=== PATIENT | male | born 1995 | race Caucasian/White ===

== ENCOUNTER 2017-12-14 22:33 | Emergency (ER) ==
[2017-12-14 22:40] VITALS: BMI 33.7
--- NOTE | 2017-12-14 22:47 | ED.PDOC ---
General ED Provider: Dr. ROBERT HART Chief Complaint: Chest Pain Stated Complaint: Patient is a 22 year old male who comes to the ER with complaints of Mid chest pain started about a day ago. Also has Left arm pain that started 2 hours ago, sore throat, cough, headache. Time Seen by Physician: 22:46 Mode of Arrival: Walk-In Information Source: Patient Exam Limitations: No limitations Nursing and Triage Documentation Reviewed and Agree: Yes Reviewed sepsis parameters & appropriate labs ordered?: Yes System Inflammatory Response Syndrome: Temp 101F or Greater, Pulse >90 BPM Sepsis Protocol: For patient's 13 years and over: Temp is 96.8 and below OR 101 and greater Pulse >90 BPM Resp >20/minute Acutely Altered Mental Status Are patient's symptoms suggestive of a new infection, such as: -Pneumonia -Skin, Soft Tissue -Endocarditis -UTI -Bone, Joint Infection -Implantable Device -Acute Abdominal Infection -Wound Infection -Meningitis -Blood Stream Catheter Infection -Unknown Cardiovascular Complaint Exam - Chest Pain Complaint/Exam Onset: Gradual Duration: 2 days Symptoms Are: Still present Timing: Constant Length of Chest Pain Episodes: constant Initial Severity: Moderate (7/10) Current Severity: Moderate Location: Reports: Midsternal Pain Radiates: Reports: Left arm Character: Reports: Aching, Sharp Aggravating: Reports: Movement, Deep breaths Associated Signs and Symptoms: Reports: Cough. Denies: Diaphoresis, Nausea, Vomiting Related History: Denies: Similar episode AMI/ACS Risk Factors: Reports: None TAD Risk Factors: Reports: None Pulmonary Embolism Risk Factors: Reports: None Prior Care for this Complaint: No Recent Stress Test: No Recent Echo/LV Function: No JVD Present: No Subcutaneous Emphysema Present: No Diminshed Breath Sounds: No Reproducible Chest Wall Pain: Yes (mid chest ) Bilateral Pulses Present: No Unequal Pulses Noted: No If Risk Factors for AMI/ACS Consider: EKG, Cardiac Enzymes Differential Diagnoses: Chest Wall Pain Quality Indicators For Acute OH or Cardiac Chest Pain: EKG in 10min. Review of Systems - Review Of Systems Constitutional: Reports: Fever Ears, Nose, Mouth, Throat: Reports: Throat pain Cardiac: Reports: Chest pain Musculoskeletal: Reports: Joint pain, Muscle pain Neurological: Reports: Anxiety All Other Systems: Reviewed and Negative Past Medical History - Past Medical History Previously Healthy: Yes Endocrine: Reports: None Cardiovascular: Reports: None Respiratory: Reports: None Hematological: Reports: None Gastrointestinal: Reports: None Genitourinary: Reports: None Neuro/Psych: Reports: None Musculoskeletal: Reports: None Cancer: Reports: None - Surgical History General Surgical History: Reports: Other (pylonoidal cyst removal) - Family History Family History: Reports: Unknown - Social History Smoking Status: Current every day smoker, Heavy tobacco smoker Hx Substance Use: No Alcohol Screening: None - Immunizations Tetanus Shot up to Date: Yes Physical Exam - Physical Exam Appearance: Ill-appearing Ill-appearing: Mild Pain Distress: Moderate Neck: Supple Respiratory: Airway patent, Breath sounds clear, Breath sounds equal, Respirations nonlabored Cardiovascular: Pulses normal, No rub, No murmur, Tachycardia GI/: Soft, Nontender, No masses, Bowel sounds normal, No Organomegaly Musculoskeletal: Normal strength, ROM intact, No edema, No calf tenderness Skin: Warm, Dry, Normal color Neurological: Sensation intact, Motor intact, Reflexes intact, Cranial nerves intact, Alert, Oriented Psychiatric: Anxious Critical Care Note - Critical Care Note Total Time (mins): 0 Course - Course Hematology/Chemistry: 12/14/17 22:55 12/14/17 22:55 Orders, Labs, Meds: Lab Review 12/14/17 12/14/17 12/14/17 22:55 22:55 22:55 WBC 15.57 H RBC 5.10 Hgb 16.0 Hct 44.8 MCV 87.8 MCH 31.4 H MCHC 35.7 H RDW Coeff of Jayden 12.7 Plt Count 331 Immature Gran % (Auto) 0.3 Neut % (Auto) 72.8 Lymph % (Auto) 16.2 [place] % (Auto) 9.6 Eos % (Auto) 0.5 Baso % (Auto) 0.6 Immature Gran # (Auto) 0.0 Neut # 11.3 H Lymph # 2.5 [place] # 1.5 Eos # 0.1 Baso # 0.1 Sodium 139 Potassium 3.3 L Chloride 104 Carbon Dioxide 26 Anion Gap 12.3 BUN 8 Creatinine 1.05 Estimated GFR (MDRD) 90.00 BUN/Creatinine Ratio 7.61 Glucose 105 H Lactic Acid Calcium 9.7 Total Bilirubin 0.8 AST 15 ALT 17 Alkaline Phosphatase 93 Total Creatine Kinase 113 Troponin I 0.0500 Total Protein 8.0 Albumin 3.9 Globulin 4.1 Albumin/Globulin Ratio 0.95 Procalcitonin TSH 0.895 Urine Opiates Screen Negative Ur Oxycodone Screen Negative Urine Methadone Screen Negative Ur Propoxyphene Screen Negative Ur Barbiturates Screen Negative U Tricyclic Antidepress Negative Ur Phencyclidine Scrn Negative Ur Amphetamine Screen Negative U Methamphetamines Scrn Negative U Benzodiazepines Scrn Negative Urine Cocaine Screen Negative U Cannabinoids Screen Negative Influenza A (Rapid) Influenza B (Rapid) 12/14/17 12/14/17 12/14/17 22:55 22:55 22:55 WBC RBC Hgb Hct MCV MCH MCHC RDW Coeff of [place] Plt Count Immature Gran % (Auto) Neut % (Auto) Lymph % (Auto) [place] % (Auto) Eos % (Auto) Baso % (Auto) Immature Gran # (Auto) Neut # Lymph # [place] # Eos # Baso # Sodium Potassium Chloride Carbon Dioxide Anion Gap BUN Creatinine Estimated GFR (MDRD) BUN/Creatinine Ratio Glucose Lactic Acid 6.7 Calcium Total Bilirubin AST ALT Alkaline Phosphatase Total Creatine Kinase Troponin I Total Protein Albumin Globulin Albumin/Globulin Ratio Procalcitonin < 0.05 TSH Urine Opiates Screen Ur Oxycodone Screen Urine Methadone Screen Ur Propoxyphene Screen Ur Barbiturates Screen U Tricyclic Antidepress Ur Phencyclidine Scrn Ur Amphetamine Screen U Methamphetamines Scrn U Benzodiazepines Scrn Urine Cocaine Screen U Cannabinoids Screen Influenza A (Rapid) Negative by naat Influenza B (Rapid) Negative by naat Orders Category Date Time Status EKG-(ED ONLY) Stat CARDIO 12/14/17 22:44 Completed BLOOD CULTURE (ED ONLY) Stat LAB 12/14/17 22:55 Received CBC W/ AUTO DIFF Stat LAB 12/14/17 22:55 Completed COMPREHENSIVE METABOLIC PANEL Stat LAB 12/14/17 22:55 Completed CREATINE KINASE Stat LAB 12/14/17 22:55 Completed DRUG SCREEN, URINE, RAPID Stat LAB 12/14/17 22:55 Completed FLU A/B MOLECULAR Stat LAB 12/14/17 22:55 Completed LACTIC ACID Stat LAB 12/14/17 22:55 Completed PROCALCITONIN Stat LAB 12/14/17 22:55 Completed RAPID STREP SCREEN [MOLECULAR GROUP A STREP] Stat LAB 12/14/17 22:55 Completed THYROID STIMULATING HORMONE Stat LAB 12/14/17 22:55 Completed TROPONIN I Stat LAB 12/14/17 22:55 Completed Acetaminophen [Tylenol] MEDS 12/15/17 00:12 Discontinued 1,000 mg PO ONCE STA Ketorolac Tromethamine [Toradol] MEDS 12/14/17 23:12 Discontinued 60 mg IM ONCE STA CHEST, 2 VIEWS PA & LAT Stat RADS 12/14/17 22:45 Taken Medications Discontinued Medications Generic Name Dose Route Start Last Admin Trade Name Freq PRN Reason Stop Dose Admin Acetaminophen 1,000 mg 12/15/17 00:12 12/15/17 00:25 Tylenol PO 12/15/17 00:13 1,000 mg ONCE STA Administration Ketorolac Tromethamine 60 mg 12/14/17 23:12 12/14/17 23:35 Toradol IM 12/14/17 23:13 Not Given ONCE STA Vital Signs: Temp Pulse Resp BP Pulse Ox 12/15/17 00:08 101.2 F H 110 H 24 156/93 H 97 12/14/17 22:34 100.9 F H 116 H 24 160/90 H 97 ZOE Risk Score Age >/= 65: No >/= 3 CAD Risk Factors: No Known CAD (Stenosis >/= 50%): No ASA Use in Past 7 Days: No Severe Angina (>/= 2 episodes in 24 hours): No EKG ST Changes >/= 0.5mm: No Postive Cardiac Marker: No ZOE Total Score: 0 ZOE Risk Score: Risk Score Odds of by 30D 0 0.1 (0.1-0.2) 1 0.3 (0.2-0.3) 2 0.4 (0.3-0.5) 3 0.7 (0.6-0.9) 4 1.2 (1.0-1.5) 5 2.2 (1.9-2.6) 6 3.0 (2.5-3.6) 7 4.8 (3.8-6.1) Departure - Departure Time of Disposition: 00:34 Disposition: HOME SELF-CARE Discharge Problem: Chest wall pain Instructions: Chest Wall Pain (ED) Condition: Fair Pt referred to PMD for follow-up: Yes IPMP verified?: No Additional Instructions: Take medications as prescribed Follow up with PCP in 3 days Prescriptions: Ibuprofen [Motrin] 600 mg PO Q6H PRN #30 tablet PRN Reason: Analgesia Allergies/Adverse Reactions: Allergies No Known Allergies Allergy (Verified 12/14/17 22:45) Home Medications: Ambulatory Orders Ibuprofen [Motrin] 600 mg PO Q6H PRN #30 tablet 12/15/17 Disposition Discussed With: Patient
[2017-12-14] MEDS ORDERED: TORADOL IM STA (23:12)
[2017-12-15 00:09] VITALS: BP 156/93; TEMP 101.2
[2017-12-15] MEDS ORDERED: TYLENOL PO STA (00:12)
--- NOTE | 2017-12-15 07:31 | DI ---
EXAM: CHEST FRONTAL AND LATERAL VIEWS HISTORY: Chest pain. COMPARISON: None FINDINGS: Heart size and mediastinal contour within normal limits. No acute infiltrates. Normal vascularity with no pleural fluid or pneumothorax. The bony thorax has no acute finding. IMPRESSION: No acute process.
== END 2017-12-15 01:04 | disposition home or self-care (01) ==
LOC: ED 22:33
DX: R07.89 Other chest pain (principal); J02.9 Acute pharyngitis, unspecified; R05 Cough; R51 Headache; F17.210 Nicotine dependence, cigarettes, uncomplicated
CPT/HCPCS: 36415; 80053; 80306; 82550; 83605; 84145; 84443; 84484; 85025; 87040; 87502; 87651; 93005; 93010; 99283

== ENCOUNTER 2018-01-28 10:41 | Emergency (ER) ==
[2018-01-28 10:45] VITALS: BP 132/78; TEMP 97.3; BMI 34.8
--- NOTE | 2018-01-28 12:04 | ED.PDOC ---
General ED Provider: Dr. LIGIA LERNER Chief Complaint: Back Pain Stated Complaint: back pain Time Seen by Physician: 11:00 Mode of Arrival: Walk-In Information Source: Patient Exam Limitations: No limitations Nursing and Triage Documentation Reviewed and Agree: Yes Reviewed sepsis parameters & appropriate labs ordered?: Yes System Inflammatory Response Syndrome: Not Applicable Sepsis Protocol: For patient's 13 years and over: Temp is 96.8 and below OR 101 and greater Pulse >90 BPM Resp >20/minute Acutely Altered Mental Status Are patient's symptoms suggestive of a new infection, such as: -Pneumonia -Skin, Soft Tissue -Endocarditis -UTI -Bone, Joint Infection -Implantable Device -Acute Abdominal Infection -Wound Infection -Meningitis -Blood Stream Catheter Infection -Unknown System Inflammatory Response Syndrome: Not Applicable Musculoskeletal Complaint Exam - Back Pain Complaint/Exam Mechanism of Injury: Reports: No known trauma Onset/Duration: 1day Symptoms Are: Still present Timing: Constant Episodes Lasting: Hours Current Severity: Moderate Character: Reports: Aching, Spasmodic Aggravating: Reports: None Alleviating: Reports: None Associated Signs and Symptoms: Denies: Swelling, Redness, Bruising, Fever, Weakness, Numbness, Tingling, Abdominal pain, Flank pain, Bladder incontinence, Bowel incontinence, Weight loss, Pain with weight bearing Related History: Reports: Similar episode TAD Risk Factors: Reports: None AAA Risk Factors: Reports: None Cauda Equina Risk Factors: Reports: None Epidural Abcess Risk Factors: Reports: None Related Surgical History: Reports: None Focal Tenderness: No Paraspinal Muscle Tenderness: No Paraspinal Muscle Spasm: No Scoliosis: No Lordosis: No Kyphosis: No SLR Test: Right Negative, Left Negative Hip Motion Testing Pain: Right Negative, Left Negative Focal Weakness: Present: None Focal Sensory Loss: Present: None Gait: Present: Normal Differential Diagnoses: Strain, Sprain Review of Systems - Review Of Systems Constitutional: Reports: No symptoms Eyes: Reports: No symptoms Ears, Nose, Mouth, Throat: Reports: No symptoms Respiratory: Reports: No symptoms Cardiac: Reports: No symptoms GI: Reports: No symptoms : Reports: No symptoms Musculoskeletal: Reports: Back pain Skin: Reports: No symptoms Neurological: Reports: No symptoms Endocrine: Reports: No symptoms Hematologic/Lymphatic: Reports: No symptoms All Other Systems: Reviewed and Negative Past Medical History - Past Medical History Previously Healthy: Yes Endocrine: Reports: None Cardiovascular: Reports: None Respiratory: Reports: None Hematological: Reports: None Gastrointestinal: Reports: None Genitourinary: Reports: None Neuro/Psych: Reports: None Musculoskeletal: Reports: None Cancer: Reports: None - Surgical History General Surgical History: Reports: Unknown - Family History Family History: Reports: Unknown - Social History Smoking Status: Current every day smoker, Heavy tobacco smoker Hx Substance Use: No Alcohol Screening: None Physical Exam - Physical Exam Appearance: Well-appearing, No pain distress, Well-nourished Eyes: PHILIP, EOMI, Conjunctiva clear ENT: Ears normal, Nose normal, Oropharynx normal Respiratory: Airway patent, Breath sounds clear, Breath sounds equal, Respirations nonlabored Cardiovascular: RRR, Pulses normal, No rub, No murmur GI/: Soft, Nontender, No masses, Bowel sounds normal, No Organomegaly Musculoskeletal: Normal strength, ROM intact, No edema, No calf tenderness Skin: Warm, Dry, Normal color Neurological: Sensation intact, Motor intact, Reflexes intact, Cranial nerves intact, Alert, Oriented Psychiatric: Affect appropriate, Mood appropriate Critical Care Note - Critical Care Note Total Time (mins): 0 Course - Course Orders, Labs, Meds: Lab Review 01/28/18 11:18 Urine Color Yellow Urine Clarity Clear Urine pH 6.0 Ur Specific [place] 1.010 Urine Protein Negative Urine Glucose (UA) Negative Urine Ketones Negative Urine Blood Negative Urine Nitrite Negative Urine Bilirubin Negative Urine Urobilinogen 0.2 Ur Leukocyte Esterase Negative Orders Category Date Time Status UA [URINALYSIS C & S IF INDICATED] Stat LAB 01/28/18 11:09 Uncollected Vital Signs: Temp Pulse Resp BP Pulse Ox 01/28/18 10:42 97.3 F L 94 H 20 132/78 97 Departure - Departure Time of Disposition: 12:03 Disposition: HOME SELF-CARE Discharge Problem: Backache Instructions: Acute Low Back Pain (ED) Condition: Good Pt referred to PMD for follow-up: Yes IPMP verified?: No Additional Instructions: Please call your Family Physician as soon as possible to schedule a follow-up appointment. Allergies/Adverse Reactions: Allergies No Known Allergies Allergy (Verified 01/28/18 10:47) Home Medications: Ambulatory Orders 1 [No Reported Medications] 01/28/18
== END 2018-01-28 12:14 | disposition home or self-care (01) ==
LOC: ED 10:41
DX: M54.9 Dorsalgia, unspecified (principal); F17.210 Nicotine dependence, cigarettes, uncomplicated
CPT/HCPCS: 81001; 99282

== ENCOUNTER 2018-02-20 09:00 | Outpatient (RCR) ==
--- NOTE | 2018-02-10 10:21 | RS.OPPTEV2 ---
Date of Note: 02/10/18 Visit #: 1 Date of Evaluation: 02/10/18 Payer Source: Insurance Surgery Performed?: No Treatment Diagnosis: Low back pain History of Condition/Mechanism of Injury:: Patient reports aggravation of back pain a little over a week ago when he was crawling under his mother's house to fix a water leak. States he twisted and felt a pop. He woke up the next morning with back pain. 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 Prior Level of Function.....Patient was independent with: ADL's, Self Care, Work /Vocation, Caregiving, Ambulation/Mobility, Community Integration/Access Functional Limitations: Reaching, Pushing, Pulling, Lifting, Carrying, Sitting, Standing, Bending, Ambulation, Community Access/Integration Current Subjective/complaints:: Patient reports aggravated low back pain. States he gets shooting pain into the right LE at times if he turns/twists a certain way. Reports pain is with any prolonged position. He denies numbness or weakness in the LE's. Also denies any weakness of the LE's. He is currently off work due to his back pain. 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 States since being off work his pain is a little less. Reports he is hoping to get back to work soon. Medical History Medical History: Unremarkable Surgical History Comments:: Pilonidal cyst removed Smoking Status: Current every day smoker Diagnostic Testing/Imaging:: Reports recent X rays show lumbar dis degeneration. Reports three years ago test revealed 5 bulging discs. Hx Home Medications: Skelaxin Patient's Goals: His goal is to get relief of back pain and return to work. Pain Assessment - Pain Description Pain Location: low back Current Pain Intensity: 9/10 Worst Pain Intensity: 6-7/10 Functional Outcome Measure Oswestry LBP: 36 - G Codes & Severity Modifier G Codes & Modifier: NA Source of G Code score: NA Observation - Observation Posture: Forward Head, Rounded Shoulders, Decreased Lumbar Lordosis Handedness: Right Gait - Gait Pattern General Gait Pattern Observation: No Deviations/Normal - ROM Lumbar Flexion: Hand reach to Mid-Thighs Sidebending to Left: Reach to Mid-thigh Sidebending to Right: Reach to Mid-thigh Lumbar Spine ROM Limitations: Soft Tissue Tightness, Pain Comments: Patient reports increased pain with lumbar flexion and bilateral sidebending. - Strength Trunk Rotation: 4+ Good + (with reports of mild discomfort in right Low back area.) Comments: 5/5 throughout bilateral LE's. Reports discomfort in the right lumbar region with MMT. - Special Tests Seated Dural Stretch Test: Negative Left, Negative Right SI Joint Compression: Negative SI Joint Distraction: Negative Comments: Patient reports tension and pain in the right low back with all Special Tests. Palpation Comments:: Patient demonstrates moderate increased muscle tone in the right lumbar paraspinals. Also appears to have right rotation of the lower thoracic and upper lumbar spine. He reports tenderness with Central PA's to the lower thoracic/upper lumbar vertebrae and then at ~L4-5. Reports no tenderness with palpation to either SI joint. Sensation - Sensation Right Lower Extremity: Intact/Normal Left Lower Extremity: Intact/Normal Additional Comments: Additional Comments: SLR bilaterally 45-50 degrees. - Treatment Modality: Electrical Stim Unattended Parameters/Method Applied: X 15 mins up to 90 peak volts HVGS, 4 large pads to bilateral thoracolumbar spine. One lead along the right and one lead along the left. Patient Position: Prone Comments: With heating pad to low back. Interventions - Exercise/Activities/Manual Therapy Exercises/Activities: No exercises given today due to muscle guarding with most movement. Manual Therapy: NA HOME EXERCISE PROGRAM: NA - Charges Timed Code Treatment Minutes: 0 Total Treatment Time: 55 mins Procedures billed for this date of service:: GURMEET CHACON, Estim EVALUATION COMPLEXITY LEVEL EVALUATION COMPLEXITY LEVEL: HISTORY: Medium (History of back pain for 3 years with recent aggravation), EXAM OF BODY SYSTEMS: Low, CLINICAL PRESENTATION: Low , CLINICAL DECISION MAKING: Low Assessment Assessment: Patient presents to therapy with a diagnosis of degeneration of lumbar or lumbosacral intervertebral disc. He presents today with low back pain , more on the right lumbar region. Exhibits moderate muscle tone in the right lumbar paraspinals with right rotation of the lower spine. He reports pain in the right low back due to muscle guarding with most movement during the evaluation He demonstrates potential to benefit from modalities and stretching to reduce muscle guarding and improve his AROM and ability to return to work. Patient Education: Education of diagnosis, Body/Joint mechanics, Education of Plan of Care Rehab Potential: Good Short Term Goals Goal #1: Muscle tone along right lumbar spine decreased to minimal. Goal to be met by: 02/17/18 Goal #2: Pt will tolerate stretching to low back and LE with min. increase in pain. Goal to be met by: 02/17/18 Goal #3: Pt independent and compliant with HEP. 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 Goal to be met by: 02/28/18 Goal #2: Score on Oswestry LBP improved to 18. Goal to be met by: 02/28/18 Goal #3: Lumb AROM WFL's without pain. Goal to be met by: 02/28/18 Goal #4: Pt able to return to usual recreation and work activities w/out limitations Goal to be met by: 02/28/18 Plan - Treatment to be Provided Procedures: Therapeutic Exercises, Therapeutic Activity, Manual Therapy, Patient Education Modalities: Electrical Stimulation, Ultrasound/Phonophoresis, Cryotherapy, Hot Packs - Treatment Plan Frequency: 3 X week Duration: 2 weeks ORDER # VISITS AND/OR THROUGH DATE: 02/28/18 - Treatment Code (1) Low back pain Code(s): M54.5 - LOW BACK PAIN Qualifiers: Chronicity: unspecified Back pain laterality: unspecified Sciatica presence: with sciatica presence unspecified Qualified Code(s): M54.5 - Low back pain (2) Degeneration of lumbar or lumbosacral intervertebral disc Code(s): M51.37 - OTHER INTERVERTEBRAL DISC DEGENERATION, LUMBOSACRAL REGION Comments: M51.37 (3) Spasm of lumbar paraspinous muscle Code(s): M62.830 - MUSCLE SPASM OF BACK Comments: M62.830
--- NOTE | 2018-02-13 11:59 | RS.OPPTDN ---
Subjective Date of Note: 02/13/18 Visit #: 2 Date of Evaluation: 02/10/18 Payer Source: Insurance Treatment Diagnosis: Low back pain Current Subjective/complaints:: Patient reports first treatment aggravated muscle soreness. Patient states he is willing to try modalities again. Reports todays treatment has also aggravated his pain, but he will work on HEP of stretching. Pain Assessment - Pain Description Pain Location: mid and lowback, with right greater than left. Current Pain Intensity: 5-7/10 prior to and 6-7/10 following treatment and exercise - Treatment Modality: Electrical Stim Attended Parameters/Method Applied: [id number] HVGC to 95p.v. to the bilateral lower thoracic through lumbar paraspinals with 4 large pads cross current with HP. Patient Position: Prone - Heat/Cryotherapy Treatment: Hot Pack (with Estim) Interventions - Exercise/Activities/Manual Therapy Exercises/Activities: Began with heel sitting mid back stretch in neutral and both sides. Patient in supine for hamstring, SKTC, and trunk rotation stretching. Discussed forward flexion mid back stretch for muscle tightness, and standing lumbar extension. Total minutes of Exercise: [id number] Manual Therapy: NA HOME EXERCISE PROGRAM: Hamstring, SKTC, trunk rotation, heel sitting mid and low back stretch, sitting mid back stretch, standing lumbar extension. - Charges Timed Code Treatment Minutes: 15mins Total Treatment Time: 40mins Procedures billed for this date of service:: HP, Estim unattended, EX Assessment: Patient continues to report pain and muscle soreness being aggravated with modalities and exercise. He is attentive to patient education and motivated to work on HEP. Patient Education: Education of diagnosis, Body/Joint mechanics, Home Exercise Program, Home Safety, Activity Modification Comments: Patient education of dx, spinal mechanics, and safety with daily activities. Patient given copy of new exercise. Patient demonstrates compliance with HEP?: Yes Short Term Goals Goal #1: Muscle tone along right lumbar spine decreased to minimal. Goal to be met by: 02/17/18 Goal #2: Pt will tolerate stretching to low back and LE with min. increase in pain. Goal to be met by: 02/17/18 Progress towards Goal:: Progressing Goal #3: Pt independent and compliant with HEP. 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 Goal to be met by: 02/28/18 Goal #2: Score on Oswestry LBP improved to 18. Goal to be met by: 02/28/18 Goal #3: Lumb AROM WFL's without pain. Goal to be met by: 02/28/18 Goal #4: Pt able to return to usual recreation and work activities w/out limitations Goal to be met by: 02/28/18 Plan PLAN OF CARE EXPIRES ON:: 02/28/18 ORDER # VISITS AND/OR THROUGH DATE: 02/28/18 PLAN: Continue modalities and gentle flexibility exercise to reduce muscle tone and increase functional activiity level.
--- NOTE | 2018-02-17 11:06 | RS.OPPTDN ---
Subjective Date of Note: 02/17/18 Visit #: 3 Date of Evaluation: 02/10/18 Payer Source: Insurance Treatment Diagnosis: Low back pain Current Subjective/complaints:: Patient reports no change in back pain at this time. Pain Assessment - Pain Description Pain Location: Right mid to lowback Pain Description: Tightness, Aching Current Pain Intensity: 6/10 Other Comments regarding Pain:: Reports treatment aggravates pain again today. - Treatment Modality: Ultrasound Parameters/Method Applied: [id number] at 1.5w/cm2 to the right lower thoracic and upper lumbar paraspinals prior to EX. Patient Position: Prone - Heat/Cryotherapy Treatment: Hot Pack ([id number] to the lowback prior to EX. Patient in prone. ) Interventions - Exercise/Activities/Manual Therapy Exercises/Activities: Heel sitting mid back stretch in neutral and both sides. Prone on elbows and modified press ups. Reveiwed hamstring, SKTC, and trunk rotation stretching. Ended with additional mid back stretching following MT. Total minutes of Exercise: 8mins Manual Therapy: x5mins Manual therapy for trigger point release along the lower right thoracic paraspinals and upper right lumbar paraspinals. Patient given tennis ball for self massage and for modified trigger point release. Total minutes of Manual Therapy: 5mins HOME EXERCISE PROGRAM: Hamstring, SKTC, trunk rotation, heel sitting mid and low back stretch, sitting mid back stretch, standing lumbar extension. - Objective Findings Observations,measurements,etc.: Patient continues to demo marked increased muscle tone in the distal right thoracic paraspinals. - Charges Timed Code Treatment Minutes: 23mins Total Treatment Time: 45mins Procedures billed for this date of service:: HP, US, EX Assessment: Patient reporting no change in right mid to lowback pain. Modalities changed to US in attempt to reduce pain and help patient progress with exercise. Patient Education: Education of diagnosis, Body/Joint mechanics, Home Exercise Program, Home Safety, Activity Modification Comments: Paitnet education of dx, mechanics, and general safety with ADL's. Patient demonstrates compliance with HEP?: Yes Short Term Goals Goal #1: Muscle tone along right lumbar spine decreased to minimal. Goal to be met by: 02/17/18 Progress towards Goal:: No Change Goal #2: Pt will tolerate stretching to low back and LE with min. increase in pain. Goal to be met by: 02/17/18 Progress towards Goal:: Progressing Goal #3: Pt independent and compliant with HEP. 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 Goal to be met by: 02/28/18 Progress towards goal: Progressing Goal #2: Score on Oswestry LBP improved to 18. Goal to be met by: 02/28/18 Goal #3: Lumb AROM WFL's without pain. Goal to be met by: 02/28/18 Goal #4: Pt able to return to usual recreation and work activities w/out limitations Goal to be met by: 02/28/18 Plan PLAN OF CARE EXPIRES ON:: 02/28/18 ORDER # VISITS AND/OR THROUGH DATE: 02/28/18 PLAN: Continue modalities and progress exercise to reduce pain and return patient to functional daily activities and work.
--- NOTE | 2018-02-20 14:51 | RS.OPPTDN ---
Subjective Date of Note: 02/20/18 Visit #: 4 Date of Evaluation: 02/10/18 Payer Source: Insurance Treatment Diagnosis: Low back pain Current Subjective/complaints:: Patient reports no change in back pain. States he had another flair-up following last session which made it difficult for him to walk. Patient states he will see his physician on the for a follow-up and will continue HEP until then. States the pain in his mid right back is "nothing like he has felt before". Pain Assessment - Pain Description Pain Location: Right mid to lowback Current Pain Intensity: 6/10 - Treatment Modality: Electrical Stim Unattended Parameters/Method Applied: [id number] HVGC to 85p.v. with 4 large pads to the lower thoracic though lumbar paraspinals with HP prior to EX. Patient Position: Prone - Heat/Cryotherapy Treatment: Hot Pack (with Estim ) Interventions - Exercise/Activities/Manual Therapy Exercises/Activities: Heel sitting mid back stretch in neutral and both sides. Prone on elbows, modified press ups, and hip extension. Reveiwed additional HEP of hamstring, SKTC, and trunk rotation stretching. Total minutes of Exercise: 15mins Manual Therapy: NA HOME EXERCISE PROGRAM: Hamstring, SKTC, trunk rotation, heel sitting mid and low back stretch, sitting mid back stretch, standing lumbar extension. - Charges Timed Code Treatment Minutes: 15mins Total Treatment Time: 40mins Procedures billed for this date of service:: HP, Estim unattended, EX Assessment: Patient reports no improvement in pain. He has a follow-up next week with physician. Patient Education: Body/Joint mechanics, Home Exercise Program, Home Safety, Activity Modification, Education of Plan of Care Patient demonstrates compliance with HEP?: Yes Short Term Goals Goal #1: Muscle tone along right lumbar spine decreased to minimal. Goal to be met by: 02/17/18 Progress towards Goal:: No Change Goal #2: Pt will tolerate stretching to low back and LE with min. increase in pain. Goal to be met by: 02/17/18 Progress towards Goal:: Progressing Goal #3: Pt independent and compliant with HEP. 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 Goal to be met by: 02/28/18 Progress towards goal: Progressing Goal #2: Score on Oswestry LBP improved to 18. Goal to be met by: 02/28/18 Progress towards goal: No Change Goal #3: Lumb AROM WFL's without pain. Goal to be met by: 02/28/18 Progress towards goal: No Change Goal #4: Pt able to return to usual recreation and work activities w/out limitations Goal to be met by: 02/28/18 Progress towards goal: No Change Plan PLAN OF CARE EXPIRES ON:: 02/28/18 ORDER # VISITS AND/OR THROUGH DATE: 02/28/18 PLAN: Hold pending patients follow-up appointment with physician due to reports of no change.
== END 2018-02-28 ==
PROVIDERS: ATTEND Nurse Practitioner Family
DX: M51.37 Other intervertebral disc degeneration, lumbosacral region (principal)

== ENCOUNTER 2018-10-09 15:27 | Outpatient (CLI) | END 2018-10-09 15:28 | disposition home or self-care (01) | LOC: RHC-LAB 15:27 | PROVIDERS: ATTEND Nurse Practitioner Family | DX: J02.9 Acute pharyngitis, unspecified (principal) | CPT/HCPCS: 87651 ==

== ENCOUNTER 2018-11-24 19:06 | Emergency (ER) ==
[2018-11-24 19:14] VITALS: BP 118/76; TEMP 98.7; BMI 29.9
[2018-11-24] MEDS ORDERED: SODIUM CHLORIDE 1,000 ML IV STA (19:16)
[2018-11-24] MEDS ORDERED: ZOFRAN 4 MG/2 ML IVP STA (19:18)
[2018-11-24] MEDS ORDERED: MORPHINE 2 MG/ML SYRINGE IVP STA (19:19)
[2018-11-24] MEDS ORDERED: DILAUDID 1 MG/ML SYRINGE IVP STA (20:43)
--- NOTE | 2018-11-24 21:19 | CT ---
EXAM: CT scan abdomen pelvis with contrast HISTORY: Abdominal pain COMPARISON: CT scan abdomen pelvis eight 07/2014 FINDINGS: Contiguous axial images were obtained through the abdomen and pelvis following uneventful administration of intravenous contrast utilizing 3-mm collimation.. Sagittal and coronal reconstruct ions were imaged and reviewed.. The visualized lung bases are clear. Gallbladder is fluid filled wi thout cholelithiasis. The liver, pancreas, spleen and adrenal glands have normal enhanced CT appeara nce. The kidneys excrete contrast in a normal fashion bilaterally. Prostate gland and bladder are u nremarkable There is mild concentric gastric wall thickening.. There is umbilical hernia containing fat.. There are prominent air and fluid filled loops of small bowel within the abdomen which demons trate gradual transition to normal bowel within the lower abdomen pelvis there is no free fluid. The re is no CT evidence of appendicitis.. Bone windows reveals no evidence of lytic or blastic lesions. IMPRESSION: Dilated small bowel within the abdomen with air fluid levels with gradual transition within the lowe r abdomen pelvis. Findings may related to ileus versus gastroenteritis. . Early or incomplete obstr uction is thought less likely and merits follow-up with plain film examination.. Normal-appearing visceral organs. Small fat-containing umbilical hernia.
--- NOTE | 2018-11-24 21:22 | CT ---
EXAM: CTA chest for Pulminary Embolism. HISTORY: Chest pain COMPARISON: TECHNIQUE: CTA of the chest was performed from the lung apices to the upper abdomen after IV contras t was administered using PE protocol. 3-D imaging was also provided. Axial scans acquired at 3 mm s lice thicknesses. MPR coronal and sagittal sequence completed. 3-D rotational sequences completed FINDINGS: Central pulmonary artery and proximal right and left lobe pulmonary arteries are seen wi thout filling defect. However, there are small filling defects involving segmental branches of the r ight and left lower lobe pulmonary artery. There is no aortic dissection aneurysm. There is a 1.4 c m right hilar node, 1.1 cm left hilar node, 1.8 cm subcarinal node. There is no pericardial or pleur al effusion. There is no lobar consolidation or pneumonia. No pleural fluid is seen. There is no a drenal enlargement. No acute finding in the upper abdomen. IMPRESSION: 1. There are small peripheral filling defects or emboli in the segmental branches of the right and l eft lower lobe pulmonary artery. 2. Prominent hilar and mediastinal nodes as detailed above. Follow-up suggested. 3. No acute pulmonary infiltrate or pleural fluid. Critical result of pulmonary emboli discussed by phone at 9:15 p.m. with attending ER staff , Dr. Noah tom
--- NOTE | 2018-11-24 21:28 | ED.PDOC ---
General ED Provider: Dr. RANDY HANKS-ER Chief Complaint: Nausea/Vomiting Stated Complaint: my chest hurts to breathe Time Seen by Physician: 19:10 Mode of Arrival: Walk-In Information Source: Patient Exam Limitations: No limitations Primary Care Provider: BUBBA ADLER Nursing and Triage Documentation Reviewed and Agree: Yes Does patient meet sepsis criteria?: No System Inflammatory Response Syndrome: Not Applicable Sepsis Protocol: For patient's 13 years and over: Temp is 96.8 and below OR 101 and greater Pulse >90 BPM Resp >20/minute Acutely Altered Mental Status Are patient's symptoms suggestive of a new infection, such as: -Pneumonia -Skin, Soft Tissue -Endocarditis -UTI -Bone, Joint Infection -Implantable Device -Acute Abdominal Infection -Wound Infection -Meningitis -Blood Stream Catheter Infection -Unknown Respiratory Complaint Exam - Respiratory Complaint/Exam Onset/Duration: 24 hrs Symptoms Are: Still present Timing: Constant Initial Severity: Moderate Current Severity: Moderate Location: Chest Character: Reports: Non-productive cough Aggravating: Reports: URI Associated Signs and Symptoms: Reports: Rapid breathing, Dyspnea, Pleuritic chest pain Pseudomonas Risk Factors: Reports: None Tuberculosis Risk Factors: Reports: None Status Asthmaticus Risk Factors: Reports: None Home Oxygen Use: No Recent Stress Test: No Recent Echo/LV Function: No Current Antibiotic Use: No Current Asthma Medication Use: No Respiratory Distress: None Inadequate Respiratory Effort: No Dysphagia Present: No Stridor Present: No JVD Present: No Accessory Muscle Use: No Retractions: Not Present Diminished Breath Sounds: No Sinus Tenderness: None Grunting Respirations: No Kussmaul Respirations: No Differential Diagnoses: Other (pulmonary embolism) Non-Traumatic Chest Pain Syncope: EKG Performed Review of Systems - Review Of Systems Constitutional: Reports: No symptoms Eyes: Reports: No symptoms Ears, Nose, Mouth, Throat: Reports: No symptoms Respiratory: Reports: Cough, Short of air Cardiac: Reports: Chest pain GI: Reports: No symptoms : Reports: No symptoms Musculoskeletal: Reports: No symptoms Skin: Reports: No symptoms Neurological: Reports: No symptoms Endocrine: Reports: No symptoms Hematologic/Lymphatic: Reports: No symptoms All Other Systems: Reviewed and Negative Past Medical History - Past Medical History Previously Healthy: Yes Endocrine: Reports: None Cardiovascular: Reports: None Respiratory: Reports: None Hematological: Reports: None Gastrointestinal: Reports: None Genitourinary: Reports: None Neuro/Psych: Reports: None Musculoskeletal: Reports: None Cancer: Reports: None - Surgical History General Surgical History: Reports: Unknown - Family History Family History: Reports: Unknown - Social History Smoking Status: Current every day smoker, Heavy tobacco smoker Hx Substance Use: No Alcohol Screening: Occasionally - Immunizations Tetanus Shot up to Date: Yes Physical Exam - Physical Exam Appearance: Well-appearing, No pain distress, Well-nourished Pain Distress: Moderate Eyes: PHILIP ENT: Ears normal, Nose normal, Oropharynx normal Neck: Supple Respiratory: Airway patent, Breath sounds clear, Breath sounds equal, Respirations nonlabored Cardiovascular: RRR, Bradycardia GI/: Soft Musculoskeletal: Normal strength, ROM intact, No edema, No calf tenderness Skin: Warm, Dry, Normal color Neurological: Sensation intact, Motor intact, Reflexes intact, Cranial nerves intact, Alert, Oriented Psychiatric: Affect appropriate, Mood appropriate Interpretation - Radiology Interpretation Radiology Interpretation By: Radiologist Radiology Results: Positive Exam Interpreted: CT Scan - EKG Interpretation Time of EKG #1: 21:29 Rate: Normal Rhythm: Sinus Ectopy: None [place]: NL ST Segment: Normal Interpretation: nsr Critical Care Note - Critical Care Note Total Time (mins): 0 Course - Course Hematology/Chemistry: 11/24/18 19:30 11/24/18 19:30 Orders, Labs, Meds: Lab Review 11/24/18 11/24/18 11/24/18 19:15 19:16 19:16 WBC RBC Hgb Hct MCV MCH MCHC RDW Coeff of Jayden Plt Count Immature Gran % (Auto) Neut % (Auto) Lymph % (Auto) King % (Auto) Eos % (Auto) Baso % (Auto) Immature Gran # (Auto) Neut # (Auto) Lymph # (Auto) King # (Auto) Eos # (Auto) Baso # (Auto) ESR Puncture Site Rb O2 Saturation 99.0 ABG pH 7.501 H* ABG pCO2 25.3 L ABG pO2 108.0 H ABG HCO3 19.7 L ABG Total CO2 20 L ABG Base Excess -3 L Berhane Test + FiO2 % 21.0 Sodium Potassium Chloride Carbon Dioxide Anion Gap BUN Creatinine Estimated GFR (MDRD) BUN/Creatinine Ratio Glucose Lactic Acid Calcium Total Bilirubin AST ALT Alkaline Phosphatase Total Protein Albumin Globulin Albumin/Globulin Ratio Amylase Lipase Procalcitonin Urine Color Yellow Urine Clarity Clear Urine pH 7.0 Ur Specific [place] 1.010 Urine Protein Negative Urine Glucose (UA) Negative Urine Ketones Negative Urine Blood Negative Urine Nitrite Negative Urine Bilirubin Negative Urine Urobilinogen 0.2 Ur Leukocyte Esterase Negative Urine Opiates Screen Negative Ur Oxycodone Screen Negative Urine Methadone Screen Negative Ur Propoxyphene Screen Negative Ur Barbiturates Screen Negative U Tricyclic Antidepress Negative Ur Phencyclidine Scrn Negative Ur Amphetamine Screen Negative U Methamphetamines Scrn Negative U Benzodiazepines Scrn Negative Urine Cocaine Screen Negative U Cannabinoids Screen Negative Influ A Molecular Assay Influ B Molecular Assay 11/24/18 11/24/18 11/24/18 19:21 19:30 19:30 WBC 9.49 RBC 5.87 Hgb 18.3 H Hct 51.9 MCV 88.4 MCH 31.2 H MCHC 35.3 RDW Coeff of Jayden 12.3 Plt Count 330 Immature Gran % (Auto) 0.3 Neut % (Auto) 69.5 Lymph % (Auto) 23.0 King % (Auto) 5.8 Eos % (Auto) 0.6 Baso % (Auto) 0.8 Immature Gran # (Auto) 0.0 Neut # (Auto) 6.6 Lymph # (Auto) 2.2 King # (Auto) 0.6 Eos # (Auto) 0.1 Baso # (Auto) 0.1 ESR Puncture Site O2 Saturation ABG pH ABG pCO2 ABG pO2 ABG HCO3 ABG Total CO2 ABG Base Excess [place] Test FiO2 % Sodium 137.2 Potassium 3.58 Chloride 103.5 Carbon Dioxide 24.3 Anion Gap 12.98 BUN 14.0 Creatinine 1.09 Estimated GFR (MDRD) 85.00 BUN/Creatinine Ratio 12.84 Glucose 99.8 Lactic Acid Calcium 10.21 H Total Bilirubin 0.39 AST 24.7 ALT 28.9 Alkaline Phosphatase 74.6 Total Protein 8.51 H Albumin 4.95 Globulin 3.56 Albumin/Globulin Ratio 1.39 Amylase 96.8 Lipase 154.2 Procalcitonin Urine Color Urine Clarity Urine pH Ur Specific [place] Urine Protein Urine Glucose (UA) Urine Ketones Urine Blood Urine Nitrite Urine Bilirubin Urine Urobilinogen Ur Leukocyte Esterase Urine Opiates Screen Ur Oxycodone Screen Urine Methadone Screen Ur Propoxyphene Screen Ur Barbiturates Screen U Tricyclic Antidepress Ur Phencyclidine Scrn Ur Amphetamine Screen U Methamphetamines Scrn U Benzodiazepines Scrn Urine Cocaine Screen U Cannabinoids Screen Influ A Molecular Assay Negative by naat Influ B Molecular Assay Negative by naat 11/24/18 11/24/18 11/24/18 19:30 19:30 19:30 WBC RBC Hgb Hct MCV MCH MCHC RDW Coeff of Jayden Plt Count Immature Gran % (Auto) Neut % (Auto) Lymph % (Auto) King % (Auto) Eos % (Auto) Baso % (Auto) Immature Gran # (Auto) Neut # (Auto) Lymph # (Auto) King # (Auto) Eos # (Auto) Baso # (Auto) ESR 2 Puncture Site O2 Saturation ABG pH ABG pCO2 ABG pO2 ABG HCO3 ABG Total CO2 ABG Base Excess [place] Test FiO2 % Sodium Potassium Chloride Carbon Dioxide Anion Gap BUN Creatinine Estimated GFR (MDRD) BUN/Creatinine Ratio Glucose Lactic Acid 1.43 Calcium Total Bilirubin AST ALT Alkaline Phosphatase Total Protein Albumin Globulin Albumin/Globulin Ratio Amylase Lipase Procalcitonin < 0.05 Urine Color Urine Clarity Urine pH Ur Specific [place] Urine Protein Urine Glucose (UA) Urine Ketones Urine Blood Urine Nitrite Urine Bilirubin Urine Urobilinogen Ur Leukocyte Esterase Urine Opiates Screen Ur Oxycodone Screen Urine Methadone Screen Ur Propoxyphene Screen Ur Barbiturates Screen U Tricyclic Antidepress Ur Phencyclidine Scrn Ur Amphetamine Screen U Methamphetamines Scrn U Benzodiazepines Scrn Urine Cocaine Screen U Cannabinoids Screen Influ A Molecular Assay Influ B Molecular Assay Orders Category Date Time Status ABG DRAW REQUEST Stat CARDIO 11/24/18 19:16 Completed EKG-(ED ONLY) Stat CARDIO 11/24/18 19:16 Completed NPO REMINDER: IMAGING ONCE CARE 11/24/18 19:17 Completed ED INTERLOCKER MAINTAINER APPLIED .ONCE EMERGENCY 11/24/18 19:16 Active ED IV/MEDIPORT/POWERPORT .ONCE EMERGENCY 11/24/18 19:16 Active ABG Stat LAB 11/24/18 19:15 Completed AMYLASE Stat LAB 11/24/18 19:30 Completed CBC W/ AUTO DIFF Stat LAB 11/24/18 19:30 Completed COMPREHENSIVE METABOLIC PANEL Stat LAB 11/24/18 19:30 Completed ESR Stat LAB 11/24/18 19:30 Completed FLU A/B MOLECULAR Stat LAB 11/24/18 19:21 Completed LACTIC ACID Stat LAB 11/24/18 19:30 Completed LIPASE Stat LAB 11/24/18 19:30 Completed MOLECULAR GROUP A STREP Stat LAB 11/24/18 19:21 Completed PROCALCITONIN Stat LAB 11/24/18 19:30 Completed URINALYSIS C & S IF INDICATED Stat LAB 11/24/18 19:16 Completed URINE DRUG SCREEN (RAPID FOR ED) [DRUG SCREEN, URINE, LAB 11/24/18 19:16 Completed RAPID] Stat 0.9 % Sodium Chloride [Saline Flush] MEDS 11/24/18 19:16 Ordered 1 syr IVF PRN PRN Hydromorphone HCl [Dilaudid 1 mg/ml Syringe] MEDS 11/24/18 20:43 Discontinued 1 mg IVP ONCE STA Morphine Sulfate [Morphine 2 mg/ml Syringe] MEDS 11/24/18 19:19 Discontinued 2 mg IVP ONCE STA Ondansetron HCl/Pf [Zofran 4 mg/2 ml] MEDS 11/24/18 19:18 Discontinued 4 mg IVP ONCE STA Sodium Chloride 0.9% [Sodium Chloride] 1,000 ml MEDS 11/24/18 19:[address] ABDOMEN/PELVIS W CONTRAST Stat RADS 11/24/18 19:[address] CHEST PE PROTOCOL Stat RADS 11/24/18 19:17 Completed Medications Generic Name Dose Route Start Last Admin Trade Name Freq PRN Reason Stop Dose Admin Sodium Chloride 1 syr 11/24/18 19:16 Saline Flush IVF PRN PRN To flush IV Discontinued Medications Generic Name Dose Route Start Last Admin Trade Name Freq PRN Reason Stop Dose Admin Hydromorphone HCl 1 mg 11/24/18 20:43 11/24/18 20:49 Dilaudid 1 Mg/Ml Syringe IVP 11/24/18 20:44 1 mg ONCE STA Administration Sodium Chloride 1,000 mls @ 1,000 mls/hr 11/24/18 19:16 11/24/18 19:35 Sodium Chloride IV 11/24/18 20:15 1,000 mls/hr BOLUS STA Administration Morphine Sulfate 2 mg 11/24/18 19:19 11/24/18 19:36 Morphine 2 Mg/Ml Syringe IVP 11/24/18 19:20 2 mg ONCE STA Administration Ondansetron HCl 4 mg 11/24/18 19:18 11/24/18 19:36 Zofran 4 Mg/2 Ml IVP 11/24/18 19:19 4 mg ONCE STA Administration Vital Signs: Temp Pulse Resp BP Pulse Ox 11/24/18 19:07 98.7 F 104 H 24 118/76 99 Departure - Departure Time of Disposition: 21:29 Disposition: TSF SHORT-TRM HOSP Discharge Problem: Pulmonary embolism Qualifiers: Pulmonary embolism type: unspecified Chronicity: acute Acute cor pulmonale presence: without acute cor pulmonale Qualified Code(s): I26.99 - Other pulmonary embolism without acute cor pulmonale Instructions: Pulmonary Embolism (ED) Condition: Good Pt referred to PMD for follow-up: No IPMP verified?: No Allergies/Adverse Reactions: Allergies No Known Allergies Allergy (Verified 11/24/18 19:13) Home Medications: Ambulatory Orders 1 [No Reported Medications] 11/24/18 Transfer Form Completed: Yes Disposition Discussed With: Patient, Family
[2018-11-24] MEDS ORDERED: LOVENOX SUBCUT STA (21:32)
== END 2018-11-24 22:05 | disposition short-term general hospital (02) ==
LOC: ED 19:06
DX: I26.99 Other pulmonary embolism without acute cor pulmonale (principal); F17.210 Nicotine dependence, cigarettes, uncomplicated; R11.2 Nausea with vomiting, unspecified; R07.1 Chest pain on breathing; R06.02 Shortness of breath
CPT/HCPCS: 36415; 80053; 80306; 81001; 82150; 82803; 83605; 83690; 84145; 85025; 85651; 87502; 87651; 93005; 93010; 96361; 96372; 96374; 96375; 99285

== ENCOUNTER 2019-01-12 18:56 | Emergency (ER) ==
[2019-01-12 19:00] VITALS: BP 155/75; TEMP 97.8; BMI 32.6
== END 2019-01-12 19:40 | disposition left against medical advice (07) ==
LOC: ED 18:56
DX: R11.2 Nausea with vomiting, unspecified (principal)

== ENCOUNTER 2019-01-12 23:16 | Emergency (ER) | payer OTHER ==
[2019-01-12 23:16] VITALS: BMI 32.6
[2019-01-12 23:28] VITALS: BP 117/65; TEMP 97.9
[2019-01-12] MEDS ORDERED: BENTYL IM STA (23:33)
[2019-01-12] MEDS ORDERED: LACTATED RINGERS 1,000 ML IV STA (23:33)
[2019-01-12] MEDS ORDERED: ZOFRAN 4 MG/2 ML IVP STA (23:33)
--- NOTE | 2019-01-13 00:34 | ED.PDOC ---
General ED Provider: Dr. ROBERT HART Chief Complaint: Nausea/Vomiting Stated Complaint: Patient states that he started having nausea vomiting and Diarrhea yesterday following eating some tacos. Time Seen by Physician: 00:34 Mode of Arrival: Walk-In Information Source: Patient Primary Care Provider: BUBBA ADLER Nursing and Triage Documentation Reviewed and Agree: Yes Does patient meet sepsis criteria?: No System Inflammatory Response Syndrome: Not Applicable Sepsis Protocol: For patient's 13 years and over: Temp is 96.8 and below OR 101 and greater Pulse >90 BPM Resp >20/minute Acutely Altered Mental Status Are patient's symptoms suggestive of a new infection, such as: -Pneumonia -Skin, Soft Tissue -Endocarditis -UTI -Bone, Joint Infection -Implantable Device -Acute Abdominal Infection -Wound Infection -Meningitis -Blood Stream Catheter Infection -Unknown GI Complaint Exam - Vomiting/Diarrhea Complaint/Exam Onset/Duration: 1 day Symptoms Are: Still present Episodes of Vomiting over last 24 Hours: 10 Episodes of Diarrhea Over Last 24 Hours: 15 Initial Severity: Severe Current Severity: Severe Character of Vomiting: Reports: Non-bilious Character of Diarrhea: Reports: Watery Aggravating: Reports: Food Alleviating: Reports: None Associated Signs and Symptoms: Reports: Cramping Related Surgical History: Reports: None Abdominal Findings: Present: None Differential Diagnoses: Viral Gastroenteritis Review of Systems - Review Of Systems Constitutional: Reports: No symptoms Eyes: Reports: No symptoms Ears, Nose, Mouth, Throat: Reports: No symptoms Respiratory: Reports: No symptoms Cardiac: Reports: No symptoms GI: Reports: Abdominal pain (cramping ), Diarrhea, Nausea, Vomiting : Reports: No symptoms Musculoskeletal: Reports: No symptoms Skin: Reports: No symptoms Neurological: Reports: Anxiety Endocrine: Reports: No symptoms Hematologic/Lymphatic: Reports: No symptoms All Other Systems: Reviewed and Negative Past Medical History - Past Medical History Previously Healthy: Yes Endocrine: Reports: None Cardiovascular: Reports: None Respiratory: Reports: None Hematological: Reports: None Gastrointestinal: Reports: None Genitourinary: Reports: None Neuro/Psych: Reports: None Musculoskeletal: Reports: None Cancer: Reports: None - Surgical History General Surgical History: Reports: Other (pilonidal cyst removal, PE tubes ) - Family History Family History: Reports: Unknown - Social History Smoking Status: Current every day smoker, Light tobacco smoker Hx Substance Use: No Alcohol Screening: None - Immunizations Tetanus Shot up to Date: Yes Physical Exam - Physical Exam Appearance: Ill-appearing, Well-nourished Ill-appearing: Mild Pain Distress: Moderate Eyes: PHILIP, EOMI, Conjunctiva clear ENT: Nose normal, Oropharynx normal Neck: Supple Respiratory: Airway patent, Breath sounds clear, Breath sounds equal, Respirations nonlabored Cardiovascular: RRR, Pulses normal, No rub, No murmur GI/: Soft, Nontender, No masses, No Organomegaly, Bowel sounds hyperactive Musculoskeletal: Normal strength, ROM intact, No edema, No calf tenderness Skin: Warm, Dry, Normal color Neurological: Sensation intact, Motor intact, Reflexes intact, Cranial nerves intact, Alert, Oriented Psychiatric: Anxious Re-Evaluation - Re-Evaluation Time of Re-Evaluation: 01:00 Status: Improved Additional Comments: no nause vomiting or abdominal pain Critical Care Note - Critical Care Note Total Time (mins): 0 Course - Course Hematology/Chemistry: 01/12/19 23:40 01/12/19 23:40 Orders, Labs, Meds: Lab Review 01/12/19 01/12/19 23:40 23:40 WBC 6.85 RBC 5.56 Hgb 17.3 Hct 50.0 MCV 89.9 MCH 31.1 H MCHC 34.6 RDW Coeff of Jayden 12.2 Plt Count 333 Immature Gran % (Auto) 0.1 Neut % (Auto) 59.0 Lymph % (Auto) 23.8 Sawyer % (Auto) 14.2 H Eos % (Auto) 2.2 Baso % (Auto) 0.7 Immature Gran # (Auto) 0.0 Neut # (Auto) 4.0 Lymph # (Auto) 1.6 Sawyer # (Auto) 1.0 Eos # (Auto) 0.2 Baso # (Auto) 0.1 Sodium 141.9 Potassium 4.04 Chloride 100.3 Carbon Dioxide 31.6 H Anion Gap 14.04 BUN 13.7 Creatinine 1.00 Estimated GFR (MDRD) 94.00 BUN/Creatinine Ratio 13.70 Glucose 92.2 Calcium 9.55 Total Bilirubin 0.50 AST 25.6 ALT 28.5 Alkaline Phosphatase 80.8 Total Protein 7.90 Albumin 4.61 Globulin 3.29 Albumin/Globulin Ratio 1.40 Amylase 66.7 Lipase 100.7 Orders Category Date Time Status ED IV/MEDIPORT/POWERPORT .ONCE EMERGENCY 01/12/19 23:33 Active AMYLASE Stat LAB 01/12/19 23:40 Completed CBC W/ AUTO DIFF Stat LAB 01/12/19 23:40 Completed COMPREHENSIVE METABOLIC PANEL Stat LAB 01/12/19 23:40 Completed LIPASE Stat LAB 01/12/19 23:40 Completed 0.9 % Sodium Chloride [Saline Flush] MEDS 01/12/19 23:33 Discontinued 1 syr IVF PRN PRN Dicyclomine Inj [Bentyl] MEDS 01/12/19 23:33 Discontinued 20 mg IM ONCE STA Ondansetron HCl/Pf [Zofran 4 mg/2 ml] MEDS 01/12/19 23:33 Discontinued 4 mg IVP ONCE STA Ringers Lactated Solution [Lactated Ringers] 1,000 ml MEDS 01/12/19 23:33 Discontinued IV BOLUS Medications Discontinued Medications Generic Name Dose Route Start Last Admin Trade Name Freq PRN Reason Stop Dose Admin Dicyclomine HCl 20 mg 01/12/19 23:33 01/13/19 00:04 Bentyl IM 01/12/19 23:34 20 mg ONCE STA Administration Lactated Ringer's 1,000 mls @ 1,000 mls/hr 01/12/19 23:33 01/13/19 00:04 Lactated Ringers IV 01/13/19 00:32 1,000 mls/hr BOLUS STA Administration Ondansetron HCl 4 mg 01/12/19 23:33 01/13/19 00:04 Zofran 4 Mg/2 Ml IVP 01/12/19 23:34 4 mg ONCE STA Administration Sodium Chloride 1 syr 01/12/19 23:33 Saline Flush IVF PRN PRN To flush IV Vital Signs: Temp Pulse Resp BP Pulse Ox 01/12/19 23:17 97.9 F 82 20 117/65 97 Departure - Departure Time of Disposition: 01:00 Disposition: HOME SELF-CARE Discharge Problem: Gastroenteritis Instructions: Gastroenteritis (ED) Condition: Fair Pt referred to PMD for follow-up: Yes IPMP verified?: No Additional Instructions: Push fluids Follow up with PCP in 3 days Prescriptions: Dicyclomine HCl [Bentyl] 10 mg PO TID PRN #20 capsule PRN Reason: Abdominal Pain Ondansetron HCl [Zofran Tab] 4 mg PO Q8H PRN #14 tablet PRN Reason: Nausea / Vomiting Allergies/Adverse Reactions: Allergies No Known Allergies Allergy (Verified 01/12/19 23:25) Home Medications: Ambulatory Orders Dicyclomine HCl [Bentyl] 10 mg PO TID PRN #20 capsule 01/13/19 Ondansetron HCl [Zofran Tab] 4 mg PO Q8H PRN #14 tablet 01/13/19 Disposition Discussed With: Patient
== END 2019-01-13 01:00 | disposition home or self-care (01) ==
LOC: ED 23:16
DX: K52.9 Noninfective gastroenteritis and colitis, unspecified (principal); F17.210 Nicotine dependence, cigarettes, uncomplicated
CPT/HCPCS: 36415; 80053; 82150; 83690; 85025; 96361; 96372; 96374; 99283

== ENCOUNTER 2019-02-02 20:54 | Emergency (ER) ==
[2019-02-02 21:10] VITALS: BP 148/75; TEMP 98.6; BMI 31.1
--- NOTE | 2019-02-02 23:03 | CT ---
Exam: CT angiography of the chest History: Dyspnea and cough Technique: [address] of the chest following intravenous contrast utilizing CT angiography protocol. M ultiplanar and maximum intensity projection reformations were performed. FINDINGS: Technically adequate for evaluation of pulmonary arteries and aorta. There are no pulmona ry artery filling defects. The lung windows show no pulmonary parenchymal abnormality. Normal heart , great vessels and pericardium. Normal chest wall soft tissues and bony thorax. No abnormality of the upper abdomen. Impression: 1. No evidence of pulmonary artery thrombus. No abnormality of the chest.
--- NOTE | 2019-02-02 23:37 | ED.PDOC ---
General ED Provider: Dr. RANDY HANKS-ER Chief Complaint: Shortness of Air Stated Complaint: im coughing up green stuff Time Seen by Physician: 20:55 Mode of Arrival: Walk-In Information Source: Patient Exam Limitations: No limitations Nursing and Triage Documentation Reviewed and Agree: Yes Does patient meet sepsis criteria?: No System Inflammatory Response Syndrome: Not Applicable Sepsis Protocol: For patient's 13 years and over: Temp is 96.8 and below OR 101 and greater Pulse >90 BPM Resp >20/minute Acutely Altered Mental Status Are patient's symptoms suggestive of a new infection, such as: -Pneumonia -Skin, Soft Tissue -Endocarditis -UTI -Bone, Joint Infection -Implantable Device -Acute Abdominal Infection -Wound Infection -Meningitis -Blood Stream Catheter Infection -Unknown Respiratory Complaint Exam - Respiratory Complaint/Exam Onset/Duration: 24 hrs Symptoms Are: Still present Timing: Intermittent Initial Severity: Mild Current Severity: Moderate Location: Chest Character: Reports: Non-productive cough Aggravating: Reports: URI Alleviating: Reports: Spontaneous resolution Associated Signs and Symptoms: Reports: URI, Sore throat History of Healthcare-Acquired Pneumonia: No Related Surgical History: Reports: None Cardiac Risk Factors: Reports: None Pseudomonas Risk Factors: Reports: None Home Oxygen Use: No Recent Stress Test: No Recent Echo/LV Function: No Current Antibiotic Use: No Current Asthma Medication Use: No Respiratory Distress: None Inadequate Respiratory Effort: No Dysphagia Present: No Stridor Present: No JVD Present: No Accessory Muscle Use: No Retractions: Not Present Sinus Tenderness: None Grunting Respirations: No Kussmaul Respirations: No Differential Diagnoses: Pneumonia, Bronchitis Review of Systems - Review Of Systems Constitutional: Reports: No symptoms Eyes: Reports: No symptoms Ears, Nose, Mouth, Throat: Reports: No symptoms Respiratory: Reports: Cough Cardiac: Reports: No symptoms GI: Reports: No symptoms : Reports: No symptoms Musculoskeletal: Reports: No symptoms Skin: Reports: No symptoms Neurological: Reports: No symptoms Endocrine: Reports: No symptoms Hematologic/Lymphatic: Reports: No symptoms All Other Systems: Reviewed and Negative Past Medical History - Past Medical History Previously Healthy: Yes Endocrine: Reports: None Cardiovascular: Reports: None Respiratory: Reports: None Hematological: Reports: None Gastrointestinal: Reports: None Genitourinary: Reports: None Neuro/Psych: Reports: None Musculoskeletal: Reports: None Cancer: Reports: None - Surgical History General Surgical History: Reports: Other (pilonidal cyst removal, PE tubes ) - Family History Family History: Reports: Unknown - Social History Smoking Status: Current every day smoker, Heavy tobacco smoker Hx Substance Use: No Alcohol Screening: Occasionally - Immunizations Tetanus Shot up to Date: Yes Physical Exam - Physical Exam Appearance: Well-appearing, No pain distress, Well-nourished Eyes: PHILIP, EOMI, Conjunctiva clear ENT: Ears normal, Nose normal, Oropharynx normal Neck: Supple Respiratory: Rhonchi Cardiovascular: RRR GI/: Soft, Nontender, No masses, Bowel sounds normal, No Organomegaly Musculoskeletal: Normal strength Skin: Warm, Dry, Normal color Neurological: Sensation intact, Motor intact, Reflexes intact, Cranial nerves intact, Alert, Oriented Psychiatric: Affect appropriate, Mood appropriate Interpretation - Radiology Interpretation Radiology Interpretation By: Radiologist Radiology Results: Negative Exam Interpreted: CT Scan Critical Care Note - Critical Care Note Total Time (mins): 0 Course - Course Hematology/Chemistry: 02/02/19 21:16 02/02/19 21:16 Orders, Labs, Meds: Lab Review 02/02/19 02/02/19 02/02/19 21:08 21:16 21:16 WBC 6.75 RBC 5.25 Hgb 16.4 Hct 47.0 MCV 89.5 MCH 31.2 H MCHC 34.9 RDW Coeff of Jayden 12.4 Plt Count 332 Immature Gran % (Auto) 0.3 Neut % (Auto) 57.9 Lymph % (Auto) 30.1 Ashley % (Auto) 7.4 Eos % (Auto) 3.0 Baso % (Auto) 1.3 Immature Gran # (Auto) 0.0 Neut # (Auto) 3.9 Lymph # (Auto) 2.0 Ashley # (Auto) 0.5 Eos # (Auto) 0.2 Baso # (Auto) 0.1 Puncture Site Lb O2 Saturation 99.0 ABG pH 7.392 ABG pCO2 41.1 ABG pO2 98.0 ABG HCO3 25 ABG Total CO2 26 ABG Base Excess 0 Berhane Test + FiO2 % 21.0 Sodium 143.1 Potassium 3.64 Chloride 107.7 H Carbon Dioxide 24.1 Anion Gap 14.94 BUN 19.5 Creatinine 1.11 H Estimated GFR (MDRD) 84.00 BUN/Creatinine Ratio 17.56 Glucose 129.4 H Calcium 9.69 Total Bilirubin 0.35 AST 35.1 ALT 22.0 Alkaline Phosphatase 77.6 Total Protein 7.69 Albumin 4.51 Globulin 3.18 Albumin/Globulin Ratio 1.41 Influ A Molecular Assay Influ B Molecular Assay 02/02/19 21:16 WBC RBC Hgb Hct MCV MCH MCHC RDW Coeff of Jayden Plt Count Immature Gran % (Auto) Neut % (Auto) Lymph % (Auto) Ashley % (Auto) Eos % (Auto) Baso % (Auto) Immature Gran # (Auto) Neut # (Auto) Lymph # (Auto) Ashley # (Auto) Eos # (Auto) Baso # (Auto) Puncture Site O2 Saturation ABG pH ABG pCO2 ABG pO2 ABG HCO3 ABG Total CO2 ABG Base Excess Berhane Test FiO2 % Sodium Potassium Chloride Carbon Dioxide Anion Gap BUN Creatinine Estimated GFR (MDRD) BUN/Creatinine Ratio Glucose Calcium Total Bilirubin AST ALT Alkaline Phosphatase Total Protein Albumin Globulin Albumin/Globulin Ratio Influ A Molecular Assay Negative by naat Influ B Molecular Assay Negative by naat Orders Category Date Time Status ABG DRAW REQUEST Stat CARDIO 02/02/19 21:08 Completed EKG-(ED ONLY) Stat CARDIO 02/02/19 21:08 Completed NPO REMINDER: IMAGING ONCE CARE 02/02/19 21:09 Completed ED IV/MEDIPORT/POWERPORT .ONCE EMERGENCY 02/02/19 21:08 Active ABG Stat LAB 02/02/19 21:08 Completed CBC W/ AUTO DIFF Stat LAB 02/02/19 21:16 Completed COMPREHENSIVE METABOLIC PANEL Stat LAB 02/02/19 21:16 Completed FLU A/B MOLECULAR Stat LAB 02/02/19 21:16 Completed 0.9 % Sodium Chloride [Saline Flush] MEDS 02/02/19 21:08 Ordered 1 syr IVF PRN PRN CT CHEST PE PROTOCOL Stat RADS 02/02/19 21:09 Completed Medications Generic Name Dose Route Start Last Admin Trade Name Freq PRN Reason Stop Dose Admin Sodium Chloride 1 syr 02/02/19 21:08 Saline Flush IVF PRN PRN To flush IV Vital Signs: Temp Pulse Resp BP Pulse Ox 02/02/19 20:54 98.6 F 94 H 20 148/75 H 97 Departure - Departure Time of Disposition: 23:37 Disposition: HOME SELF-CARE Discharge Problem: Bronchitis Instructions: Acute Bronchitis (ED) Condition: Good Pt referred to PMD for follow-up: Yes IPMP verified?: No Additional Instructions: augmenitin 875mg bid x 7 days , medrol dose pack---f/u with pcp Allergies/Adverse Reactions: Allergies No Known Allergies Allergy (Verified 02/02/19 21:04) Home Medications: Ambulatory Orders 1 [No Reported Medications] 02/02/19 Disposition Discussed With: Patient, Family
== END 2019-02-02 23:50 | disposition home or self-care (01) ==
LOC: ED 20:54
DX: J40 Bronchitis, not specified as acute or chronic (principal); F17.210 Nicotine dependence, cigarettes, uncomplicated
CPT/HCPCS: 36415; 80053; 82803; 85025; 87502; 93005; 93010; 99283

== ENCOUNTER 2019-04-01 15:26 | Emergency (ER) ==
[2019-04-01 15:31] VITALS: BP 127/78; TEMP 98.4; BMI 39.4
--- NOTE | 2019-04-01 15:45 | ED.PDOC ---
General ED Provider: Dr. RANDY SOLORZANO Chief Complaint: Respiratory Complaint Stated Complaint: Cough and congestion. Denies fever or chills. Denies Nauea or vomiting. Cough productive of brownish colored sputum Time Seen by Physician: 15:35 Mode of Arrival: Walk-In Information Source: Patient Exam Limitations: No limitations Nursing and Triage Documentation Reviewed and Agree: Yes Does patient meet sepsis criteria?: No System Inflammatory Response Syndrome: Not Applicable Sepsis Protocol: For patient's 13 years and over: Temp is 96.8 and below OR 101 and greater Pulse >90 BPM Resp >20/minute Acutely Altered Mental Status Are patient's symptoms suggestive of a new infection, such as: -Pneumonia -Skin, Soft Tissue -Endocarditis -UTI -Bone, Joint Infection -Implantable Device -Acute Abdominal Infection -Wound Infection -Meningitis -Blood Stream Catheter Infection -Unknown Respiratory Complaint Exam - Respiratory Complaint/Exam Onset/Duration: 1 day Symptoms Are: Still present Timing: Intermittent Initial Severity: Mild Current Severity: Mild Location: Throat, Chest Character: Reports: Productive cough Aggravating: Reports: Passive smoke exposure, Deep breaths, Recumbent position Associated Signs and Symptoms: Denies: Rapid breathing, Dyspnea, Fever, Chills, Chest pain, Pleuritic chest pain, Wheezing, Hemoptysis, Dizziness, Calf pain, Calf swelling, Edema, URI, Hoarseness, Sinus discomfort, Vomiting, Sore throat, Weight loss, Decreased oral intake, Increased thirst, Increased appetite, Increased urination Related History: Reports: Similar episode History of Healthcare-Acquired Pneumonia: No Related Surgical History: Reports: None Pulmonary Embolism Risk Factors: None Cardiac Risk Factors: Reports: None Pseudomonas Risk Factors: Reports: None Tuberculosis Risk Factors: Reports: None Status Asthmaticus Risk Factors: Reports: None Home Oxygen Use: No Recent Stress Test: No Recent Echo/LV Function: No Current Antibiotic Use: No Current Asthma Medication Use: No Respiratory Distress: None Inadequate Respiratory Effort: No Dysphagia Present: No Stridor Present: No JVD Present: No Accessory Muscle Use: No Retractions: Not Present Diminished Breath Sounds: No Sinus Tenderness: None Grunting Respirations: No Kussmaul Respirations: No Differential Diagnoses: URI Review of Systems - Review Of Systems Constitutional: Reports: Weakness Eyes: Reports: No symptoms Ears, Nose, Mouth, Throat: Reports: No symptoms Respiratory: Reports: Cough Cardiac: Reports: No symptoms GI: Reports: No symptoms : Reports: No symptoms Musculoskeletal: Reports: No symptoms Skin: Reports: No symptoms Neurological: Reports: No symptoms Endocrine: Reports: No symptoms Hematologic/Lymphatic: Reports: No symptoms All Other Systems: Reviewed and Negative Past Medical History - Past Medical History Previously Healthy: Yes Endocrine: Reports: None Cardiovascular: Reports: None Respiratory: Reports: None Hematological: Reports: None Gastrointestinal: Reports: None Genitourinary: Reports: None Neuro/Psych: Reports: None Musculoskeletal: Reports: None Cancer: Reports: None - Surgical History General Surgical History: Reports: Other (pilonidal cyst removal, PE tubes ) - Family History Family History: Reports: Unknown - Social History Smoking Status: Current every day smoker, Heavy tobacco smoker Hx Substance Use: No Alcohol Screening: Occasionally Physical Exam - Physical Exam Appearance: Well-appearing, No pain distress, Well-nourished Ill-appearing: None Pain Distress: None Eyes: PHILIP, EOMI, Conjunctiva clear ENT: Ears normal, Nose normal, Oropharynx normal, Erythema (minimal without exudate) Neck: Supple Respiratory: Airway patent, Breath sounds clear, Breath sounds equal, Respirations nonlabored Cardiovascular: RRR, Pulses normal, No rub, No murmur GI/: Soft, Nontender, No masses, Bowel sounds normal, No Organomegaly Musculoskeletal: Normal strength, ROM intact, No edema, No calf tenderness Skin: Warm, Dry, Normal color Neurological: Sensation intact, Motor intact, Reflexes intact, Cranial nerves intact, Alert, Oriented Psychiatric: Affect appropriate, Mood appropriate Critical Care Note - Critical Care Note Total Time (mins): 0 Course - Course Orders, Labs, Meds: Lab Review 04/01/19 16:24 Influ A Molecular Assay Negative by naat Influ B Molecular Assay Negative by naat Orders Category Date Time Status FLU A & B MOLECULAR [FLU A/B MOLECULAR] Stat LAB 04/01/19 16:24 Completed RAPID STREP SCREEN [MOLECULAR GROUP A STREP] Stat LAB 04/01/19 16:24 Completed Vital Signs: Temp Pulse Resp BP Pulse Ox 04/01/19 15:26 98.4 F 84 16 127/78 97 Departure - Departure Time of Disposition: 16:55 Disposition: HOME SELF-CARE Discharge Problem: URI (upper respiratory infection) Instructions: Upper Respiratory Infection (ED) Condition: Good Pt referred to PMD for follow-up: No IPMP verified?: Yes Prescriptions: Azithromycin [Zithromax] 250 mg PO DAILY #6 tablet Allergies/Adverse Reactions: Allergies No Known Allergies Allergy (Verified 04/01/19 15:32) Home Medications: Ambulatory Orders Azithromycin [Zithromax] 250 mg PO DAILY #6 tablet 04/01/19 Disposition Discussed With: Patient
== END 2019-04-01 16:55 | disposition home or self-care (01) ==
LOC: ED 15:26
DX: J06.9 Acute upper respiratory infection, unspecified (principal); F17.210 Nicotine dependence, cigarettes, uncomplicated
CPT/HCPCS: 87502; 87651; 99283

== ENCOUNTER 2019-05-07 13:06 | Emergency (ER) ==
[2019-05-07 13:13] VITALS: BP 117/69; TEMP 97.8; BMI 30.9
--- NOTE | 2019-05-07 13:38 | ED.PDOC ---
General ED Provider: Dr. LIGIA LERNER Chief Complaint: Tooth Problem Stated Complaint: dental pain Time Seen by Physician: 13:13 (seen with ledy ) Mode of Arrival: Walk-In Information Source: Patient Exam Limitations: No limitations Nursing and Triage Documentation Reviewed and Agree: Yes Does patient meet sepsis criteria?: No System Inflammatory Response Syndrome: Not Applicable Sepsis Protocol: For patient's 13 years and over: Temp is 96.8 and below OR 101 and greater Pulse >90 BPM Resp >20/minute Acutely Altered Mental Status Are patient's symptoms suggestive of a new infection, such as: -Pneumonia -Skin, Soft Tissue -Endocarditis -UTI -Bone, Joint Infection -Implantable Device -Acute Abdominal Infection -Wound Infection -Meningitis -Blood Stream Catheter Infection -Unknown EENT Complaint Exam - Dental/Oral Complaint/Exam Mechanism of Injury: No known trauma Onset/Duration: 3 days Symptoms Are: Still present Timing: Intermittent Initial Severity: Moderate Current Severity: Moderate Location: see beblow Character: Reports: Throbbing Aggravating: Reports: Heat, Cold, Chewing Alleviating: Denies: OTC Meds Associated Signs and Symptoms: Denies: Swelling, Discharge, Fever, Foul odor, Foul taste in mouth Related History: Reports: Similar episode Cardiac Risk Factors: Reports: None Dental/Oral Surgical History: Reports: None Tooth Findings: Present: Percussion tenderness, Gross decay, Gross caries Cervical Lymphadenopathy Present: No Facial Swelling Present: Yes Bleeding Present: No Oropharynx Findings: Absent: Clots, Active bleeding Septal Hematoma: No Foreign Body Present: No Dysphagia Present: No Drooling Present: No Asymmetrical Tonsillar Swelling Present: No Uvula Midline: Yes Ayesha-tonsillar Fluctuence: No Trismus Present: No Palatal Petechiae Present: No Scarlatinaform Rash Present: No Lesions: Absent: Lip, Gums, Tongue, Buccal Mucosa, Pharynx Exanthem: Absent: Lip, Gums, Tongue, Buccal Mucosa, Pharynx Vesicles: Absent: Lip, Gums, Tongue, Buccal Mucosa, Pharynx Teeth Picture: 1 - decay Differential Diagnoses: Dental Caries Review of Systems - Review Of Systems Constitutional: Reports: No symptoms Eyes: Reports: No symptoms Ears, Nose, Mouth, Throat: Reports: No symptoms Respiratory: Reports: No symptoms Cardiac: Reports: No symptoms GI: Reports: No symptoms : Reports: No symptoms Musculoskeletal: Reports: No symptoms Skin: Reports: No symptoms Neurological: Reports: No symptoms Endocrine: Reports: No symptoms Hematologic/Lymphatic: Reports: No symptoms All Other Systems: Reviewed and Negative Past Medical History - Past Medical History Previously Healthy: Yes Endocrine: Reports: None Cardiovascular: Reports: None Respiratory: Reports: None Hematological: Reports: None Gastrointestinal: Reports: None Genitourinary: Reports: None Neuro/Psych: Reports: None Musculoskeletal: Reports: None Cancer: Reports: None - Surgical History General Surgical History: Reports: Other (pilonidal cyst removal, PE tubes ) - Family History Family History: Reports: Unknown - Social History Smoking Status: Current every day smoker, Heavy tobacco smoker Hx Substance Use: No Alcohol Screening: Occasionally - Immunizations Tetanus Shot up to Date: Yes Physical Exam - Physical Exam Appearance: Well-appearing, No pain distress, Well-nourished Eyes: PHILIP, EOMI, Conjunctiva clear ENT: Ears normal, Nose normal, Oropharynx normal Respiratory: Airway patent, Breath sounds clear, Breath sounds equal, Respirations nonlabored Cardiovascular: RRR, Pulses normal, No rub, No murmur GI/: Soft, Nontender, No masses, Bowel sounds normal, No Organomegaly Musculoskeletal: Normal strength, ROM intact, No edema, No calf tenderness Skin: Warm, Dry, Normal color Neurological: Sensation intact, Motor intact, Reflexes intact, Cranial nerves intact, Alert, Oriented Psychiatric: Affect appropriate, Mood appropriate Critical Care Note - Critical Care Note Total Time (mins): 0 Course - Course Vital Signs: Temp Pulse Resp BP Pulse Ox 05/07/19 13:08 97.8 F 88 20 117/69 96 Departure - Departure Time of Disposition: 13:39 Disposition: HOME SELF-CARE Discharge Problem: Toothache Instructions: Toothache (ED) Condition: Good Pt referred to PMD for follow-up: Yes IPMP verified?: Yes Additional Instructions: Please call your Family Physician as soon as possible to schedule a follow-up appointment. Prescriptions: Hydrocodone Bit/Acetaminophen [Lowry 10-325] 1 each PO Q6HR #10 tablet Amoxicillin 500 mg PO Q8HR #30 tablet Allergies/Adverse Reactions: Allergies No Known Allergies Allergy (Verified 04/01/19 15:32) Home Medications: Ambulatory Orders Amoxicillin 500 mg PO Q8HR #30 tablet 05/07/19 Hydrocodone Bit/Acetaminophen [Lowry 10-325] 1 each PO Q6HR #10 tablet 05/07/19
== END 2019-05-07 13:49 | disposition home or self-care (01) ==
LOC: ED 13:06
DX: K08.89 Other specified disorders of teeth and supporting structures (principal); K02.7 Dental root caries
CPT/HCPCS: 99282

== ENCOUNTER 2019-08-04 11:00 | Emergency (ER) ==
[2019-08-04 11:02] VITALS: BP 144/79; TEMP 97.9; BMI 31.4
--- NOTE | 2019-08-04 12:44 | ED.PDOC ---
General ED Provider: Dr. LIGIA LERNER Chief Complaint: Cough Stated Complaint: cough, sore throat Time Seen by Physician: 11:45 Mode of Arrival: Walk-In Information Source: Patient Exam Limitations: No limitations Nursing and Triage Documentation Reviewed and Agree: Yes Does patient meet sepsis criteria?: No System Inflammatory Response Syndrome: Not Applicable Sepsis Protocol: For patient's 13 years and over: Temp is 96.8 and below OR 101 and greater Pulse >90 BPM Resp >20/minute Acutely Altered Mental Status Are patient's symptoms suggestive of a new infection, such as: -Pneumonia -Skin, Soft Tissue -Endocarditis -UTI -Bone, Joint Infection -Implantable Device -Acute Abdominal Infection -Wound Infection -Meningitis -Blood Stream Catheter Infection -Unknown EENT Complaint Exam - Throat Complaint/Exam Symptoms Are: Still present Timimg: Constant Initial Severity: Mild Current Severity: Mild Aggravating: Reports: Eating Alleviating: Reports: None Associated Signs and Symptoms: Reports: Cough, Hoarseness, Nasal congestion. Denies: Fever, Dysphagia, Drooling, Foreign body sensation, Chills, Wheezing, Sinus discomfort, Difficulty breathing, Lethargy, Irritability, Decreased activity, Vomiting, Diarrhea, Decreased hearing, Ear drainage Uvula Midline: Yes Ayesha-tonsillar Fluctuence: No Scarlatinaform Rash Present: No Lesions: Absent: Lip, Gums, Tongue, Buccal Mucosa, Pharynx Exanthem: Absent: Lip, Gums, Tongue, Buccal Mucosa, Pharynx Vesicles: Absent: Lip, Gums, Tongue, Buccal Mucosa, Pharynx Stridor Present: No Sinus Tenderness Present: No Tonsillar Hypertrophy Present: No Tonsillar Exudate Present: No Ayesha-tonsillar Swelling Present: No Differential Diagnoses: Pharyngitis Review of Systems - Review Of Systems Constitutional: Reports: No symptoms Eyes: Reports: No symptoms Ears, Nose, Mouth, Throat: Reports: Throat pain Respiratory: Reports: Cough Cardiac: Reports: No symptoms GI: Reports: No symptoms : Reports: No symptoms Musculoskeletal: Reports: No symptoms Skin: Reports: No symptoms Neurological: Reports: No symptoms Endocrine: Reports: No symptoms Hematologic/Lymphatic: Reports: No symptoms All Other Systems: Reviewed and Negative Past Medical History - Past Medical History Previously Healthy: Yes Endocrine: Reports: None Cardiovascular: Reports: None Respiratory: Reports: Other (lung cyst seen at [facility] 2018) Hematological: Reports: None Gastrointestinal: Reports: None Genitourinary: Reports: None Neuro/Psych: Reports: None Musculoskeletal: Reports: None Cancer: Reports: None - Surgical History General Surgical History: Reports: Other (pilonidal cyst removal, PE tubes ) - Family History Family History: Reports: Unknown - Social History Smoking Status: Current every day smoker, Heavy tobacco smoker Hx Substance Use: No Alcohol Screening: Occasionally - Immunizations Tetanus Shot up to Date: No Physical Exam - Physical Exam Appearance: Well-appearing, No pain distress, Well-nourished Eyes: PHILIP, EOMI, Conjunctiva clear ENT: Erythema Respiratory: Airway patent, Breath sounds clear, Breath sounds equal, Respirations nonlabored Cardiovascular: RRR, Pulses normal, No rub, No murmur GI/: Soft, Nontender, No masses, Bowel sounds normal, No Organomegaly Musculoskeletal: Normal strength, ROM intact, No edema, No calf tenderness Skin: Warm, Dry, Normal color Neurological: Sensation intact, Motor intact, Reflexes intact, Cranial nerves intact, Alert, Oriented Psychiatric: Affect appropriate, Mood appropriate Critical Care Note - Critical Care Note Total Time (mins): 0 Course - Course Orders, Labs, Meds: Orders Category Date Time Status CBC W/ AUTO DIFF Stat LAB 08/04/19 12:38 Stop Req COMPREHENSIVE METABOLIC PANEL Stat LAB 08/04/19 12:38 Stop Req CHEST, 2 VIEWS PA & LAT Stat RADS 08/04/19 12:[address] SOFT TISSUE NECK W/O CONTR Stat RADS 08/04/19 12:41 Stop Req Vital Signs: Temp Pulse Resp BP Pulse Ox 08/04/19 11:00 97.9 F 97 H 18 144/79 H 97 Departure - Departure Time of Disposition: 12:45 (stated he had waited too long, does not care to wait any longer ) Disposition: AMA Discharge Problem: Cough, Sore throat symptom Pharyngitis Qualifiers: Pharyngitis/tonsillitis etiology: unspecified etiology Qualified Code(s): J02.9 - Acute pharyngitis, unspecified Instructions: Pharyngitis (ED) Condition: Good Pt referred to PMD for follow-up: Yes IPMP verified?: No Additional Instructions: Please call your Family Physician as soon as possible to schedule a follow-up appointment. Allergies/Adverse Reactions: Allergies No Known Allergies Allergy (Verified 08/04/19 11:06) Home Medications: Ambulatory Orders 1 [No Reported Medications] 08/04/19
== END 2019-08-04 12:40 | disposition left against medical advice (07) ==
LOC: ED 11:00
DX: R05 Cough (principal); J06.0 Acute laryngopharyngitis; F17.210 Nicotine dependence, cigarettes, uncomplicated
CPT/HCPCS: 87502; 87651; 99284

== ENCOUNTER 2019-08-04 14:37 | Outpatient (CLI) ==
[2019-08-04 11:02] VITALS: BMI 31.4
== END 2019-08-04 14:38 | disposition home or self-care (01) ==
LOC: RHC-LAB 14:37
PROVIDERS: ATTEND General Practice
DX: J06.0 Acute laryngopharyngitis (principal)
CPT/HCPCS: 87502; 87651